=== PATIENT | female | born 1960 | race American Indian/Alaskan Native ===

== ENCOUNTER 2019-03-20 07:19 | Day surgery (SDC) | payer BC ==
[2019-03-20] MEDS ORDERED: fentaNYL 100 MCG/2 ML INJ IV PRN (08:23)
--- NOTE | 2019-03-20 08:29 | Anesthesia Day of Surgery ---
Anesthesia Day of Surgery - Day of Surgery Patient Examined: Yes Patient H&P Reviewed: Yes Patient is NPO: Yes
--- NOTE | 2019-03-20 08:29 | Anesthesia Consultation ---
Anesthesia Consult and Med Hx Date of service: 03/20/19 - Airway Anesthetic Teeth Evaluation: Good ROM Head & Neck: Adequate Mental/Hyoid Distance: Adequate Mallampati Class: Class III Intubation Access Assessment: Possibly Difficult - Pulmonary Exam CTA: Yes - Cardiac Exam Cardiac Exam: RRR - Pre-Operative Health Status ASA Pre-Surgery Classification: ASA2 Proposed Anesthetic Plan: General - Pulmonary Hx Smoking: No Hx Respiratory Symptoms: No Hx Sleep Apnea: No (SREEKANTH PRE SCREEN HIGH RISK) - Cardiovascular System Hx Hypertension: Yes (took lisinopril this morning) Hx Heart Attack/AMI: No Hx Cardia Arrhythmia: No - Central Nervous System Hx Seizures: No CVA: No - Gastrointestinal Hx Gastroesophageal Reflux Disease: No - Endocrine Hx Renal Disease: No Hx Liver Disease: No Hx Non-Insulin Dependent Diabetes: Yes - Other Systems Hx Obesity: Yes
[2019-03-20] MEDS ORDERED: MIDAZOLAM 2 MG/2 ML INJ IV NR (09:00)
[2019-03-20] MEDS ORDERED: LACTATED RINGERS 1,000 ML IV SCH (09:00)
[2019-03-20] MEDS ORDERED: ceFAZolin/STERILE WATER 2 GM/20 ML SYRINGE IV NR (09:15)
[2019-03-20] MEDS ORDERED: HYDROmorphone 1 MG/1 ML INJ ONE (09:19)
[2019-03-20] MEDS ORDERED: PROPOFOL 200 MG/20 ML VIAL IV ONE (09:20)
[2019-03-20] MEDS ORDERED: SUCCINYLCHOLINE CHLORIDE 200 MG/10 ML INJ MDV ONE (09:20)
[2019-03-20] MEDS ORDERED: LIDOCAINE MPF (2%) 20 MG/1 ML VIAL 5 ML ONE (09:20)
[2019-03-20] MEDS ORDERED: ROCURONIUM 50 MG/5 ML INJ IV ONE (09:21)
[2019-03-20] MEDS ORDERED: PHENYLEPHRINE/NS 1,000 MCG/10 ML SYRINGE (OR USE) IV ONE (09:30)
[2019-03-20] MEDS ORDERED: ePHEDrine SULFATE 50 MG/1 ML INJ ONE (09:56)
[2019-03-20] MEDS ORDERED: ONDANSETRON 4 MG/2 ML INJ ONE (10:17)
--- NOTE | 2019-03-20 10:17 | Short Stay Summary ---
Short Stay Documentation Date of service: 03/20/19 - History H&P: obtained from office - Allergies and Medications Current Medications: Allergies latex Allergy (Verified 03/14/19 13:48) Rash tramadol Allergy (Verified 03/14/19 13:48) Vomiting Home Medications Medication Instructions Recorded Confirmed Last Taken Type Lisinopril [Zestril] 20 mg PO QDAY 03/14/19 03/20/19 03/20/19 06:00 History hydroCHLOROthiazide [HCTZ] 25 mg PO 2XW 03/14/19 03/14/19 03/19/19 12:00 History metFORMIN [Glucophage] 250 mg PO QDAY 03/14/19 03/14/19 03/19/19 12:00 History Active Medications Cefazolin Sodium (Ancef/Sterile Water 2 Gm/20 Ml) 2 gm IV PREOP NR Stop: 03/20/19 16:00 Fentanyl (Sublimaze) 50 mcg IV Q5MIN PRN PRN Reason: Pain , Severe (7-10) Stop: 03/20/19 20:00 Lactated Ringer's (Lactated Ringers) 1,000 mls @ 100 mls/hr IV DIRECT CHRIST Last Admin: 03/20/19 09:15 Dose: 100 mls/hr Documented by: Midazolam HCl (Versed) 2 mg IV PREOP NR Stop: 03/20/19 23:59 Last Admin: 03/20/19 09:25 Dose: 2 mg Documented by: - Brief post op/procedure progress note Date of procedure: 03/20/19 Pre-op diagnosis: rt renal stone Post-op diagnosis: same Procedure: ESWL Anesthesia: GETA Surgeon: GWENDOLYN SEO Estimated blood loss: none Condition: stable - Hospital course Hospital course: deb lozada, post op info on chart - Disposition Condition at discharge: Stable Disposition: DC-01 TO HOME OR SELFCARE Short Stay Discharge Plan Follow up with: DELIA MENDOZA MD [Primary Care Provider] - 7 Days
--- NOTE | 2019-03-20 10:52 | Operative Report ---
PREOPERATIVE DIAGNOSES: Bilateral kidney stones, right flank pain. POSTOPERATIVE DIAGNOSES: Bilateral kidney stones, right flank pain. PROCEDURE: Right extracorporal shock wave lithotripsy (staged procedure). SURGEON: Michel Reyes MD. ANESTHESIA: General. ESTIMATED BLOOD LOSS: Minimal. FLUIDS: Crystalloid. COMPLICATIONS: No complications. INDICATIONS: This 58-year-old female seen in the office for right flank pain. CT of abdomen and pelvis has actually done last year, was noted to have a 10 mm stone on the right and several small stones on the left. Also, of note, she has a large renal cyst and liver cyst. We discussed options. She agreed to proceed with surgical intervention. DESCRIPTION OF PROCEDURE: The patient was taken to the operative suite, placed in a supine position. After adequate general anesthesia, she had to be placed in the oblique position to clearly identify the stone. Extracorporal shock wave lithotripsy was administered with a maximum kV of 8 and 2500 shocks. 5-minute renal pause after 200 shocks was performed. Adequate fragmentation could be appreciated. The patient tolerated the procedure well. She was extubated and taken to recovery room. She will go home on Elsa, strain her urine, and follow up in the office. JOB# [id number] MISSY/REHAN
[2019-03-20 11:45] VITALS: BP 102/61
--- NOTE | 2019-03-20 18:57 | Post Anesthesia Evaluation ---
- Post Anesthesia Evaluation Patient Participated: Yes Airway Patent: Yes Stable Respiratory Function: Yes Nausea/Vomiting: No Temp > 96.8F: Yes Pain Manageable: Yes Adequeate Hydration: Yes Anesthesia Complications: No Block Receding Appropriately: Not Applicable Patient on Ventilator: No
== END 2019-03-20 07:20 | disposition home or self-care (01) ==
LOC: OR 07:19
PROVIDERS: ATTEND Urology
DX: N20.0 Calculus of kidney (principal); I10 Essential (primary) hypertension; E66.9 Obesity, unspecified; E11.9 Type 2 diabetes mellitus without complications; Z91.040 Latex allergy status; Z79.84 Long term (current) use of oral hypoglycemic drugs; Z68.31 Body mass index [BMI] 31.0-31.9, adult; Z86.2 Personal history of diseases of the blood and blood-forming organs and certain disorders involving the immune mechanism; Z88.8 Allergy status to other drugs, medicaments and biological substances
CPT/HCPCS: 50590; 82803; 82962; J1170; J2250; J2370; J2405; J2704; J7120; J0330